=== PATIENT | male | born 1980 | race Two or more races ===

== ENCOUNTER 2024-11-25 10:13 | Emergency (ER) | payer OTHER ==
[~2024-11-25] VITALS: Ht 172.7 cm; Wt 67.6 kg
[2024-11-25] MEDS ORDERED: NORTRIPTYLINE H75 MG PO (11:32)
[2024-11-25] MEDS ORDERED: VRAYLAR1.5 MG PO (11:32)
[2024-11-25] MEDS ORDERED: TRUVADA 200 MG1 EACH PO (11:33)
[2024-11-25] MEDS ORDERED: BUSPIRONE HCL7.5 MG PO (11:33)
[2024-11-25] MEDS ORDERED: ROGAINE60 GM TOP (11:33)
[2024-11-25] MEDS ORDERED: VALTREX1000 MG PO (11:34)
[2024-11-25] MEDS ORDERED: TESTIM5 GM IM (11:35)
[2024-11-25 13:56] LABS: HEMATOCRIT 47.2 % (39.0-48.0); HEMOGLOBIN 15.8 g/dL (13-16.00); MEAN CELL VOLUME 96.8 fL (80.0-100.00); MEAN CORPUSCULAR HEMOGLOBIN 32.3 pg (27.00-32.0); MEAN CORPUSCULAR HGB CONC 33.4 g/dl (32.0-36.0); PLATELET COUNT 217 K/uL (150-450); RED BLOOD COUNT 4.87 M/uL (4.00-6.00); RED CELL DISTRIBUTION WIDTH 13.6 % (11.5-14.5)
[2024-11-25] MEDS ORDERED: PAXLOVID 300-11 EAC1 PO (14:46)
[2024-11-25] MEDS ORDERED: GILTUSS COUGH-118 M1 PO (14:53)
== END 2024-11-25 15:34 | disposition home or self-care (01) ==
LOC: ER 10:16
PROVIDERS: Preventive Medicine Public Health & General Preventive Medicine
DX: U07.1 COVID-19 (principal); R53.81 Other malaise